=== PATIENT | female | born 1930 | race Caucasian/White ===

== ENCOUNTER 2017-08-25 11:54 | Inpatient (IN) | payer MEDICARE, OTHER ==
[~2017-08-25] VITALS: Ht 162.6 cm; Wt 43.1 kg
[~2017-08-25 11:54] MED LIST: ACETAMINOPHEN-1 EAC1 PO; ACETAMINOPHEN650 M5 PO; ACIDOPHILUS1 EAC3 PO; ACIDOPHILUS1 EACH PO; AMBEREN; AMLODIPINE BESY10 MG; AMLODIPINE BESY10 MG PO; AMPICILLIN PO; ANALGESIC325 MG PO; ANASPAZ0.125 MG SL; ANTACID650 MG PO; ASA5UEC; ASPIRIN EC325 M1 PO; ASPIRIN PO; ASPIRIN81 M2 PO; B12INJ; BENICAR; BENICAR HCT 401 EACH PO; BENICAR40 MG; BENICAR40 MG PO; BUDESONIDE EC3 MG PO; CALCIUM; CALCIUM 500 +1 EAC5 PO; CALCIUM 600 +1 EAC1; CENTRUM SILVER1 EAC4 PO; CEPHALEXIN 500500 M3 PO; CIPRO500 MG PO; CITRACAL + BON1 EACH; CITRACAL + D C1 EACH; CLORAZEPATE D3.75 M1; CLORAZEPATE D3.75 M1 PO; CLORAZEPATE D3.75 M2 PO; COLACE100 MG PO; CRANBERRY500 M1 PO; ENOXAPARIN40 MG/0.1 SUBQ; ENTOCORT EC3 MG; ENTOCORT EC3 MG PO; ENTOCORT PO; ESTRACE1 TUBE VAG; ESTRADIOL 1 MG T1 M1 TOP; FISH OIL 1,001000 M2 PO; FLAGYL500 MG PO; FOSAMAX 70 MG T70 M1; FOSAMAX 70 MG T70 M1 PO; FOSAMAX 70 MG T70 MG; HYDROCODONE-AP1 EAC6 PO; HYOMAX SL; HYOMAX-DT0.375 MG; IMODIUM A-D1 MG/5 ML; IMODIUM A-D1 MG/5 ML PO; K-DUR 20 MEQ T20 MEQ PO; KLOR-CON 1010 MEQ; LEVOTHROID 00.075 M1 PO; LEVOTHROID75 MCG; LEVOTHYROXINE0.05 MG PO; LEVOTHYROXINE50 MCG PO; LEVOTHYROXINE75 MCG PO; LEVSIN0.125 MG PO; LOMOTIL TABLET1 EACH; LOPERAMIDE 2 MG2 M1 PO; MACRODANTIN50 MG PO; MIRALAX255 GM; MIRAPEX; NASACORT10.8 ML NASAL; NEXIUM40 MG PO; NITROFURANTOIN50 M2 GT; NORCO 5-325 TA1 EACH PO; ONDANSETRON HCL4 M2 PO; OXYBUTYNIN 5 MG5 M1; OXYBUTYNIN 5 MG5 M1 PO; PHENERGAN 25 MG25 MG PO; POTASSIUM20 PO; QUESTRAN PACKET4 GM PO; RECLAST 55 MG/100 M; TIMOLOL; TIMOLOL MA0.25 %/5 M INTRAOCULR; TIMOPTIC2.5 M1 OP; TIROSINT75 MCG; TUMS PO; TYLENOL PM EX-1 EACH PO; VIOKASE 8 TABL468 MG PO; VITAMIN B COMP1 EACH PO; VITAMIN C120 GM; VITAMIN D2000 UNIT PO; VITAMIN D31000 UNI2; VITAMINC500 PO; VITCB500GO; ZOLOFT 50 MG TA50 M1; [UNRECOGNIZED DRUG - OTHER]
[2017-08-25 12:06] VITALS: BP 143/68
[2017-08-25 12:59] LABS: HEMATOCRIT 36.3 % (37.0-47.0); HEMOGLOBIN 12.1 gm/dL (12.0-15.0); MCH 29.4 pg (26.0-34.0); MCHC 33.3 g/dL (28.0-37.0); MCV 88.4 fL (80.0-100.0); NUCLEATED RBCS 0 /100WBC; PLATELET COUNT* 326 thou/uL (150-400); RBC 4.11 mil/uL (4.20-5.00); RDW-CV 13.8 % (10.5-14.5); WBC 10.2 thou/uL (4.0-11.0)
[2017-08-25 13:06] LABS: APTT 30.9 Seconds (25.0-31.3); PROTIME 9.5 Seconds (9.20-11.50)
[2017-08-25 13:15] LABS: ANION GAP 4 mmol/L (7-16); BUN 15 mg/dL (7-18); CHLORIDE 91 mmol/L (98-107); CO2 29 mmol/L (21-32); CREATININE 0.6 mg/dL (0.6-1.3); GLUCOSE 86 mg/dL (70-99); POTASSIUM 4.4 mmol/L (3.5-5.1); SODIUM 124 mmol/L (136-145)
[2017-08-25 13:22] LABS: ABSOLUTE LYMPHOCYTES 1.1 thou/uL (0.8-5.3); ABSOLUTE MONOCYTES 1.1 thou/uL (0.0-1.2); ANISOCYTOSIS 1+; PLATELET ESTIMATE ADEQUATE; POIKILOCYTOSIS 1+
[2017-08-25 13:26] LABS: ALBUMIN 3.4 g/dL (3.4-5.0); ALKALINE PHOSPHATASE 97 U/L (46-116); NT-PRO BRAIN NAT PEPTIDE 290 pg/mL (<300); SGOT 23 U/L (15-37); SGPT 21 U/L (30-65); TOTAL BILIRUBIN 0.4 mg/dL (<0.1-1.0); TOTAL PROTEIN 7.1 g/dL (6.4-8.2); TROPONIN-I LEVEL <0.06 ng/mL (<0.06)
[2017-08-25 13:42] LABS: URINE BILIRUBIN NEGATIVE (Negative); URINE BLOOD TRACE (Negative); URINE CLARITY CLEAR; URINE COLOR YELLOW; URINE GLUCOSE-RANDOM NEGATIVE (Negative); URINE KETONES NEGATIVE (Negative); URINE LEUKOCYTES-REFLEX 1+ (Negative); URINE NITRITE-REFLEX POSITIVE (Negative); URINE PROTEIN NEGATIVE (Negative); URINE UROBILINOGEN 0.2 E.U./dl (0.2-1.0)
[2017-08-25 13:50] LABS: SQUAMOUS 0-3 Few /LPF (0-3)
[2017-08-25 13:51] LABS: CASTS None Seen /LPF (None Seen); CRYSTALS None Seen /LPF (None Seen); URINE RBC 0-2 Rare /HPF (0-2)
[2017-08-25 15:27] VITALS: BP 159/60
[2017-08-25 16:00] VITALS: BP 152/62
--- NOTE | 2017-08-25 18:10 | NUR ---
ALERT AND ORIENTED X4. UP WITH ASSIST X1 WITH WALKER AND GAIT BELT. PAIN BEING MANAGED WITH PO PAIN MEDICATION. DENIES NAUSEA. IV IS PATENT AND INFUSING. VSS ON ROOM AIR. HOURLY ROUNDS HAVE BEEN MAINTAINED THROUGHOUT SHIFT. CALL LIGHT IS WITHIN REACH. NURSING WILL CONTINUE TO MONITOR.
--- NOTE | 2017-08-25 20:21 | EKG ---
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 CAN : 1930 Requested By: Jose Maria Romero Order Number: [id number] MD: Wale Morales Measurements Intervals [place] Rate: 77 P: 78 TN: 183 QRS: 18 QRSD: 82 T: 60 QT: 358 QTc: 406 Interpretive Statements Sinus rhythm Atrial premature complex Probable left atrial enlargement ST elevation suggests acute pericarditis Compared to ECG 02/18/2017 06:04:48 Atrial premature complex(es) now present ST (T wave) deviation now present T-wave abnormality no longer present Electronically Signed On 08-25-2017 20:21:25 HABILITATIVE INTERVENTIONIST by Wale Morales [email or web address] <ELECTRONICALLY SIGNED> By: Wale Morales MD, FACC 08/25/172020 1240 1240 Wale Morales MD, FACC /EPI
[2017-08-25 22:00] VITALS: BP 143/63
[2017-08-26 00:09] VITALS: BP 145/64
[2017-08-26 04:40] LABS: ABSOLUTE BASOPHILS 0.1 thou/uL (0.0-0.2); ABSOLUTE EOSINOPHILS 0.1 thou/uL (0.0-0.7); ABSOLUTE LYMPHOCYTES 1.1 thou/uL (0.8-5.3); ABSOLUTE MONOCYTES 0.9 thou/uL (0.0-1.2); ABSOLUTE NEUTROPHILS 6.3 thou/uL (1.6-8.1); BASOPHILS 0.8 %; EOSINOPHILS 1.4 %; HEMATOCRIT 34.5 % (37.0-47.0); HEMOGLOBIN 11.4 gm/dL (12.0-15.0); LYMPHOCYTES 12.6 %; MCH 29.4 pg (26.0-34.0); MCHC 33.1 g/dL (28.0-37.0); MCV 88.6 fL (80.0-100.0); MONOCYTES 10.3 %; MPV 6.1 fl. (7.2-11.1); NUCLEATED RBCS 0 /100WBC; PLATELET COUNT* 306 thou/uL (150-400); POLYS 74.9 %; RBC 3.89 mil/uL (4.20-5.00); RDW-CV 13.8 % (10.5-14.5); WBC 8.4 thou/uL (4.0-11.0)
[2017-08-26 05:19] LABS: CALCIUM 8.1 mg/dL (8.5-10.1); CREATININE 0.5 mg/dL (0.6-1.3); POTASSIUM 3.7 mmol/L (3.5-5.1)
[2017-08-26 08:00] VITALS: BP 118/64
--- NOTE | 2017-08-26 08:57 | NUR ---
ALERT AND ORIENTED. UP TO BEDSIDE COMMODE WITH 1 ASSIST. VOIDED IN BEDSIDE COMMODE 5 TIMES THROUGHOUT NIGHT. PATIENT STATED SHE DID NOT FEEL LIKE SHE NEEDED TO BE STRAIGHT CATH WHEN ASKED. PAIN MEDICATION GIVEN X1 FOR BACK PAIN AND HELPFUL. HAD STOOL FROM ILEOSTOMY. CALL LIGHT WITHIN REACH.
[2017-08-26] MEDS ORDERED: VITAMIN B-12500 MCG PO (09:19)
[2017-08-26] MEDS ORDERED: THERA TEARS15 ML OPHTHALMIC (09:20)
[2017-08-26 16:00] VITALS: BP 136/55
--- NOTE | 2017-08-26 17:44 | NUR ---
ALERT AND ORIENTED X4. UP WITH ASSIST OF 1 WITH WALKER AND GAIT BELT IN ROOM. IV IS PATENT AND SALINE LOCKED. MURILLO PLACE THIS EVENING DUE TO RETENTION. PAIN BEING MANAGED WITH PO PAIN MEDICATION. DENIES NAUSEA. VSS ON ROOM AIR. HOURLY ROUNDS HAVE BEEN MAINTAINED THROUGHOUT SHIFT. CALL LIGHT IS WITHIN REACH. NURSING WILL CONTINUE TO MONITOR.
[2017-08-26 20:12] VITALS: BP 148/64
[2017-08-27 04:00] VITALS: BP 164/65
[2017-08-27 04:27] LABS: HEMOGLOBIN 11.6 gm/dL (12.0-15.0); NUCLEATED RBCS 0 /100WBC; WBC 7.7 thou/uL (4.0-11.0)
[2017-08-27 04:29] LABS: ABSOLUTE BASOPHILS 0.1 thou/uL (0.0-0.2); ABSOLUTE EOSINOPHILS 0.2 thou/uL (0.0-0.7); ABSOLUTE LYMPHOCYTES 1.2 thou/uL (0.8-5.3); ABSOLUTE MONOCYTES 0.9 thou/uL (0.0-1.2); ABSOLUTE NEUTROPHILS 5.4 thou/uL (1.6-8.1); EOSINOPHILS 2.9 %; HEMATOCRIT 34.5 % (37.0-47.0); LYMPHOCYTES 14.9 %; MCH 29.6 pg (26.0-34.0); MCHC 33.6 g/dL (28.0-37.0); MCV 88.1 fL (80.0-100.0); MONOCYTES 11.2 %; PLATELET COUNT* 309 thou/uL (150-400); RBC 3.91 mil/uL (4.20-5.00); RDW-CV 13.8 % (10.5-14.5)
[2017-08-27 04:56] LABS: ALBUMIN 2.8 g/dL (3.4-5.0); CALCIUM 8.4 mg/dL (8.5-10.1); CREATININE 0.5 mg/dL (0.6-1.3); POTASSIUM 3.5 mmol/L (3.5-5.1); TOTAL BILIRUBIN 0.5 mg/dL (<0.1-1.0); TOTAL PROTEIN 6.4 g/dL (6.4-8.2)
--- NOTE | 2017-08-27 05:28 | NUR ---
PATIENT HAS REMAINED ALERT AND ORIENTED X 4 THROUGHOUT THE SHIFT AND RESTING AT HOURLY ROUNDS. MEDICATED FOR BACK PAIN AT SHIFT CHANGE TO GOOD EFFECT. MEDICATIONS PER ORDERS. VITAL SIGNS STABLE. CONTINUE TO MONITOR.
[2017-08-27 07:45] VITALS: BP 135/55
[2017-08-27 10:34] LABS: INFLUENZA A ANTIGEN None Detected (None Detect); INFLUENZA B ANTIGEN None Detected (None Detect)
[2017-08-27 16:00] VITALS: BP 128/64
--- NOTE | 2017-08-27 16:46 | NUR ---
PATIENT REMAINS ALERT AND ORIENTED. DENIES PAIN THIS AFTERNOON. UP TO CHAIR FOR A FEW HOURS. COCCYX RED, BLANCHABLE IN SOME AREAS. REPOSITIONED EVERY 2 HOURS. TOLERATING MEALS. IV SALINE LOCKED. ILEOSTOMY APPLIANCE CHANGED TODAY. LARGE AMOUNT OF STOOL. MURILLO IN PLACE WITH YELLOW URINE. BED/CHAIR ALARM IN USE. VSS. RA. DAUGHTER AT BEDSIDE. WILL CONTINUE TO MONITOR.
[2017-08-27 21:15] VITALS: BP 149/68
[2017-08-28 01:20] VITALS: BP 130/49
--- NOTE | 2017-08-28 06:29 | NUR ---
ALERT AND ORIENTED. UP WITH 1 ASSIST, GAIT BELT AND WALKER TO BATHROOM. TURNED EVERY 2 HOURS WHILE IN BED. PAIN MEDICATION GIVEN X1 FOR BACK PAIN. BED ALARM ON WHILE IN BED. NO C/O N/V. MURILLO CATH PATENT WITH CLEAR YELLOW URINE. CALL LIGHT WITHIN REACH.
[2017-08-28 08:15] VITALS: BP 128/62
[2017-08-28 09:42] VITALS: BP 128/62
[2017-08-28] MEDS ORDERED: CIPRO500 MG PO (09:44)
--- NOTE | 2017-08-28 10:38 | NUR ---
Pt was seen d/t low BMI of 16.3. Pt was admitted d/t weakness and UTI. Note pt hx ileostomy and celiac. Pt denies recent wt loss. Pt reports good appetite and no issues with gluten free diet while in hospital. Chart Reviewed. Low nutrition risk.
--- NOTE | 2017-08-28 13:18 | NUR ---
SPOKE WITH DAUGHTER,NANCY AND PT. AT THIS TIME PT.LIVES ALONE BUT KNOWS SHE IS GOING TO HAVE TO MAKE OTHER ARRANGEMENTS. WOULD LIKE TO GO TO [facility] FOR SNF. THEY THEN MAY LOOK INTO THE [facility]. PT.USES A WALKER TO AMBULATE. MADE REFERRAL TO [facility] FOR [facility] BED. TOLD HER PT.READY FOR DISCHARGE TODAY. [facility] CALLED BACK AT THIS TIME AND SAID THEY COULD ACCEPT PT.TODAY. [facility] CAN PICK HER UP AT 1430. PT.AND DAUGHTER INFORMED. FAXED ORDERS TO [facility]. CHART COPIED TO GO [facility] PT. NGOC DOMINGUEZ WILL CALL REPORT.
--- NOTE | 2017-08-28 14:01 | NUR ---
MURILLO REMOVED. PATIENT STRAIGHT CATHS TID AT HOME. ORDER SENT TO ASSISTED.
--- NOTE | 2017-08-28 14:32 | NUR ---
PATIENT DISCHARGED TO [facility] AT THIS TIME VIA WHEELCHAIR VAN. DAUGHTER MARYELLEN WITH PATIENT. IV REMOVED EARLIER IN SHIFT. CHIDI CROFT'D PRIOR TO DC. INFORMED FACILITY PATIENT STRAIGHT CATHS TID AT HOME. COPY OF CHART SENT. REPORT CALLED TO [facility].
== END 2017-08-28 14:30 | DRG 644 ==
LOC: M.ERS 11:54 → M.ORTHSURG 13:56 → M.TBA-ER 13:56 → M.ORTHSURG 15:32
PROVIDERS: Family Medicine; ADMIT Internal Medicine
DX: E22.2 Syndrome of inappropriate secretion of antidiuretic hormone (principal); M48.54XA Collapsed vertebra, not elsewhere classified, thoracic region, initial encounter for fracture; N39.0 Urinary tract infection, site not specified; R65.10 Systemic inflammatory response syndrome (SIRS) of non-infectious origin without acute organ dysfunction; E44.1 Mild protein-calorie malnutrition; Z68.1 Body mass index [BMI] 19.9 or less, adult; I10 Essential (primary) hypertension; M81.0 Age-related osteoporosis without current pathological fracture; W18.39XA Other fall on same level, initial encounter; E86.0 Dehydration; B96.89 Other specified bacterial agents as the cause of diseases classified elsewhere; Z90.49 Acquired absence of other specified parts of digestive tract; Z98.42 Cataract extraction status, left eye; Z98.41 Cataract extraction status, right eye; Z85.828 Personal history of other malignant neoplasm of skin; Z93.2 Ileostomy status; Z79.82 Long term (current) use of aspirin; Z79.899 Other long term (current) drug therapy; Z88.2 Allergy status to sulfonamides; Z88.8 Allergy status to other drugs, medicaments and biological substances; Y93.89 Activity, other specified; Y92.89 Other specified places as the place of occurrence of the external cause; Y99.8 Other external cause status

== ENCOUNTER 2017-11-10 14:06 | Emergency (ER) | payer MEDICARE, OTHER ==
[~2017-11-10] VITALS: Ht 162.6 cm; Wt 43.5 kg
[~2017-11-10 14:06] MED LIST changes: +THERA TEARS15 ML OPHTHALMIC; +VITAMIN B-12500 MCG PO
[2017-11-10] MEDS ORDERED: FISH OIL 1,001000 M2 PO (14:22)
[2017-11-10] MEDS ORDERED: KLOR-CON 1010 MEQ PO (14:23)
[2017-11-10] MEDS ORDERED: SYNTHROID75 MCG (14:24)
[2017-11-10] MEDS ORDERED: CALCIUM 600 +1 EAC1 PO (14:25)
[2017-11-10] MEDS ORDERED: IRON325 PO (14:26)
[2017-11-10 15:11] LABS: ABSOLUTE BASOPHILS 0.1 thou/uL (0.0-0.2); ABSOLUTE EOSINOPHILS 0.2 thou/uL (0.0-0.7); ABSOLUTE LYMPHOCYTES 0.9 thou/uL (0.8-5.3); ABSOLUTE MONOCYTES 0.8 thou/uL (0.0-1.2); BASOPHILS 0.7 %; EOSINOPHILS 2.1 %; HEMATOCRIT 34.3 % (37.0-47.0); HEMOGLOBIN 11.5 gm/dL (12.0-15.0); LYMPHOCYTES 11.5 %; MCH 30.4 pg (26.0-34.0); MCHC 33.6 g/dL (28.0-37.0); MCV 90.6 fL (80.0-100.0); MONOCYTES 9.7 %; MPV 5.9 fl. (7.2-11.1); NUCLEATED RBCS 0 /100WBC; PLATELET COUNT* 301 thou/uL (150-400); RBC 3.78 mil/uL (4.20-5.00); RDW-CV 15.1 % (10.5-14.5); WBC 7.9 thou/uL (4.0-11.0)
[2017-11-10 15:15] LABS: ANION GAP 9 mmol/L (7-16); BUN 19 mg/dL (7-18); CALCIUM 8.3 mg/dL (8.5-10.1); CHLORIDE 93 mmol/L (98-107); CO2 26 mmol/L (21-32); CREATININE 0.7 mg/dL (0.6-1.3); GLUCOSE 110 mg/dL (70-99); POTASSIUM 4.4 mmol/L (3.5-5.1); SODIUM 128 mmol/L (136-145)
[2017-11-10 15:16] LABS: APTT 26.9 Seconds (25.0-31.3); PROTIME 9.7 Seconds (9.20-11.50)
[2017-11-10 15:26] LABS: ALBUMIN 3.4 g/dL (3.4-5.0); ALKALINE PHOSPHATASE 123 U/L (46-116); NT-PRO BRAIN NAT PEPTIDE 190 pg/mL (<300); SGOT 20 U/L (15-37); SGPT 23 U/L (30-65); TOTAL BILIRUBIN 0.3 mg/dL (<0.1-1.0); TOTAL PROTEIN 6.6 g/dL (6.4-8.2); TROPONIN-I LEVEL <0.06 ng/mL (<0.06)
[2017-11-10 16:14] LABS: URINE BILIRUBIN NEGATIVE (Negative); URINE BLOOD NEGATIVE (Negative); URINE CLARITY CLEAR; URINE COLOR YELLOW; URINE GLUCOSE-RANDOM NEGATIVE (Negative); URINE KETONES NEGATIVE (Negative); URINE LEUKOCYTES-REFLEX NEGATIVE (Negative); URINE NITRITE-REFLEX NEGATIVE (Negative); URINE PROTEIN NEGATIVE (Negative); URINE SPECIFIC GRAVITY <= 1.005 (1.005-1.030); URINE UROBILINOGEN 0.2 E.U./dl (0.2-1.0)
[2017-11-10 18:11] VITALS: BP 144/56
--- NOTE | 2017-11-11 10:11 | EKG ---
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 CAN : 1930 Requested By: Viktor Deshpande Order Number: [id number] MD: Albert Douglas Measurements Intervals [place] Rate: 68 P: 58 AR: 213 QRS: 11 QRSD: 79 T: 61 QT: 385 QTc: 410 Interpretive Statements Sinus rhythm Borderline prolonged AR interval Minimal ST elevation, inferior leads Compared to ECG 08/25/2017 12:40:52 Atrial premature complex(es) no longer present ST (T wave) deviation still present Electronically Signed On 11-11-2017 10:11:30 CDT by Albert Douglas [email or web address] <ELECTRONICALLY SIGNED> By: Perlita Douglas MD, [facility] 11/11/17 1011 1506 1506 Perlita Douglas MD, [facility] /EPI
== END 2017-11-10 18:12 | disposition home or self-care (01) ==
LOC: M.ERS 14:06
PROVIDERS: Emergency Medicine
DX: K94.19 Other complications of enterostomy (principal); E87.1 Hypo-osmolality and hyponatremia; I10 Essential (primary) hypertension; M81.0 Age-related osteoporosis without current pathological fracture; Z88.1 Allergy status to other antibiotic agents; Z88.8 Allergy status to other drugs, medicaments and biological substances

== ENCOUNTER 2018-08-05 22:11 | Inpatient (IN) | payer MEDICARE, OTHER ==
[~2018-08-05] VITALS: Ht 165.1 cm; Wt 41.3 kg
[~2018-08-05 22:11] MED LIST changes: +CALCIUM 600 +1 EAC1 PO; +IRON325 PO; +KLOR-CON 1010 MEQ PO; +SYNTHROID75 MCG PO
[2018-08-05 22:12] VITALS: BP 133/67
[2018-08-05 22:36] LABS: HEMATOCRIT 32.9 % (37.0-47.0); HEMOGLOBIN 11.4 gm/dL (12.0-15.0); MCH 32.6 pg (26.0-34.0); MCHC 34.6 g/dL (28.0-37.0); MCV 94.1 fL (80.0-100.0); MPV 6.2 fl. (7.2-11.1); NUCLEATED RBCS 0 /100WBC; PLATELET COUNT* 256 thou/uL (150-400); RBC 3.49 mil/uL (4.20-5.00); RDW-CV 13.2 % (10.5-14.5); WBC 7.3 thou/uL (4.0-11.0)
[2018-08-05 22:48] LABS: ANION GAP 6 mmol/L (7-16); BUN 16 mg/dL (7-18); CALCIUM 8.6 mg/dL (8.5-10.1); CHLORIDE 93 mmol/L (98-107); CO2 27 mmol/L (21-32); CREATININE 0.6 mg/dL (0.6-1.3); GLUCOSE 118 mg/dL (70-99); POTASSIUM 4.2 mmol/L (3.5-5.1); SODIUM 126 mmol/L (136-145)
[2018-08-05 23:02] LABS: ALBUMIN 3.2 g/dL (3.4-5.0); ALKALINE PHOSPHATASE 74 U/L (46-116); LIPASE 494 U/L (73-393); NT-PRO BRAIN NAT PEPTIDE 298 pg/mL (<300); SGOT 22 U/L (15-37); SGPT 22 U/L (30-65); TOTAL BILIRUBIN 0.3 mg/dL (<0.1-1.0); TOTAL PROTEIN 6.4 g/dL (6.4-8.2); TROPONIN-I LEVEL <0.06 ng/mL (<0.06)
[2018-08-05 23:41] LABS: URINE BILIRUBIN NEGATIVE (Negative); URINE BLOOD NEGATIVE (Negative); URINE CLARITY CLEAR; URINE COLOR YELLOW; URINE GLUCOSE-RANDOM NEGATIVE (Negative); URINE KETONES NEGATIVE (Negative); URINE LEUKOCYTES-REFLEX NEGATIVE (Negative); URINE NITRITE-REFLEX NEGATIVE (Negative); URINE PROTEIN TRACE (Negative); URINE SPECIFIC GRAVITY <= 1.005 (1.005-1.030); URINE UROBILINOGEN 0.2 E.U./dl (0.2-1.0)
[2018-08-05 23:48] LABS: ABSOLUTE EOSINOPHILS 0.1 thou/uL (0.0-0.7); ABSOLUTE LYMPHOCYTES 0.8 thou/uL (0.8-5.3); ABSOLUTE MONOCYTES 0.6 thou/uL (0.0-1.2); ABSOLUTE NEUTROPHILS 5.8 thou/uL (1.6-8.1)
[2018-08-05 23:49] LABS: CLUMPED PLTS OCCASIONAL; PLATELET ESTIMATE ADEQUATE; TOXIC GRANULATION 1+
[2018-08-06] MEDS ORDERED: TYLENOL EXTRA500 MG PO (00:11)
[2018-08-06] MEDS ORDERED: ASPIRIN325 PO (00:12)
[2018-08-06] MEDS ORDERED: TIMOLOL GL0.5 %/5 M1 OPHTHALMIC (00:13)
[2018-08-06] MEDS ORDERED: LEVOTHYROXINE50 MCG PO (00:14)
[2018-08-06] MEDS ORDERED: KLOR-CON 1010 MEQ PO (00:15)
[2018-08-06] MEDS ORDERED: BENICAR20 MG PO (00:16)
[2018-08-06] MEDS ORDERED: NITROFURANTOIN50 M2 PO (00:17)
[2018-08-06 00:41] VITALS: BP 153/71
[2018-08-06 01:15] VITALS: BP 150/62
--- NOTE | 2018-08-06 02:41 | NUR ---
PT RECIEVED FROM ED. SAT MAINTAINED IN RA. ALERT AND ORIENTED X4. CALL LIGHT WITHIN REACH AND BED IN LOW POSITION. ILEOSTOMY BAG PRESENT. DENIES SOB AND PAIN.
[2018-08-06 04:00] VITALS: BP 156/55
[2018-08-06 08:30] VITALS: BP 165/58
[2018-08-06 10:08] LABS: ALBUMIN 2.9 g/dL (3.4-5.0); CALCIUM 8.2 mg/dL (8.5-10.1); CREATININE 0.7 mg/dL (0.6-1.3); POTASSIUM 3.5 mmol/L (3.5-5.1); TOTAL BILIRUBIN 0.3 mg/dL (<0.1-1.0)
--- NOTE | 2018-08-06 10:19 | EKG ---
[place] [address] ELECTROCARDIOGRAM REPORT Name: KYLERACHEL M Room: [address] ADM IN M.R.#: [id number] Admission: 08/06/18 Attend Phys: Ascencion Bran MD Discharge: Date of : 30 Report #: [id number] THIS REPORT FOR: //name// [facility] ED Test Date: 2018-08-05 Test Time: 22:38:05 Pat Name: RACHEL WRIGHT Department: Room: [facility] Gender: F Garnett Fixer: DANA : 1930 Requested By: Brandi Almaraz Order Number: [id number] MD: El Carey Measurements Intervals [place] Rate: 99 P: 63 NC: 191 QRS: -26 QRSD: 82 T: 43 QT: 324 QTc: 416 Interpretive Statements Sinus tachycardia Atrial premature complex Probable left atrial enlargement Borderline left axis deviation Abnormal inferior Q waves Compared to ECG 11/10/2017 15:06:55 Atrial premature complex(es) now present ST (T wave) deviation still present Electronically Signed On 08-06-2018 10:19:30 PHARMACIST CRITICAL CARE by El Carey [email or web address] <ELECTRONICALLY SIGNED> By: El Carey MD, FAC 08/06/18 1019 37 37 El Carey MD, [facility] /EPI
[2018-08-06 12:33] VITALS: BP 131/71
--- NOTE | 2018-08-06 14:03 | NUR ---
ATTEMPTED TO MEET WITH PT THIS AM, PT WAS BUSY WITH DR AND THEN NURSE. ON 3RD ATTEMPT, DTR JARROD CAMERON STATED SHE WANTED ME TO COME BACK TOMORROW.
--- NOTE | 2018-08-06 15:20 | NUR ---
WOUND CARE NOTE: CONSULT RECEIVED FOR PRESSURE WOUND. PATIENT ADMITS TO LOWERING HERSELF DOWN TO THE FLOOR WHEN SHE WAS HOME, ALSO STATES SHE HIT THE WALL WHEN GOING DOWN. STATES SHE SAT ON THE FLOOR FOR AWHILE THEN SCOOTED HERSELF ACROSS THE FLOOR. BELIEVE PATIENT HAS ECCHYMOSIS TO THE SACROCOCCYGEAL REGION. DO NOT BELIEVE THIS IS A PRESSURE ULCER. PATIENT ALSO HAS FRICTION INJURIES TO BILATERAL SIDES OF SACRUM, BELIEVE FROM WEARING BRIEF. PATIENT DOES HAVE A STACK OF BRIEFS IN HER ROOM. APPLIED BARRIER OINTMENT TO THE AREA. DO NOT BELIEVE SHE HAS PRESSURE ULCERS. RECOMMEND TURN Q2 HOURS THIN LAYER OF BARRIER OINTMENT BID AND PRN NO BRIEFS IN BED WILL SIGN OFF AT THIS TIME, PLEASE RECONSULT IF NEEDED.
--- NOTE | 2018-08-06 15:24 | 2DMMODE ---
[place] [address] 2 D/M-MODE ECHOCARDIOGRAM Name: JORDYN WRIGHTLICHA Lake Room: [address] [facility]#: [id number] Admission: 08/06/18 Attend Phys: Ascencion Bran, Discharge: Date of : 30 Date of Service: 08/06/18 1524 Report #: [id number] THIS REPORT FOR: //name// APPROVED REPORT Study performed: 08/06/2018 13:35:28 EXAM: Comprehensive 2D, Doppler, and color-flow Echocardiogram Patient Location: In-Patient Room #: [facility] Status: routine BSA: 1.45 HR: 82 bpm BP: 165/58 mmHg Rhythm: NSR Other Information Study Quality: Good Indications CVA/TIA Echo Enhancing Agent Indication: Rule out Shunt Agent(s) / Amount(s) Used: Agitated Saline 10 cc 2D Dimensions IVSd: 9.33 (7-11mm) LVOT Diam: 20.12 (18-24mm) LVDd: 44.72 mm PWd: 9.25 (7-11mm) Ascending Ao: 33.23 (22-36mm) LVDs: 31.55 (25-40mm) Aortic Root: 32.37 mm Volumes Left Atrial Volume (Systole) LA ESV Index: 19.30 mL/m2 Aortic Valve AoV Peak Constantino.: 2.63 m/s AO Peak Gr.: 27.75 mmHg LVOT Max P.17 mmHg AO Mean Gr.: 15.70 mmHg LVOT Mean P.85 mmHg LVOT Max V: 1.14 m/s AO V2 VTI: 54.74 cm LVOT Mean V: 0.79 m/s FELIX (VTI): 1.54 cm2 LVOT V1 VTI: 26.45 cm AI Preston: 4.34 m/s2 AI PHT: 316.73 [place] [address] 2 D/M-MODE ECHOCARDIOGRAM Name: JORDYN WRIGHTLICHA Lake Room: [address] IN .R.#: [id number] Admission: 08/06/18 Attend Phys: Ascencion Bran, Discharge: Date of : 30 Date of Service: 08/06/18 1524 Report #: [id number] Mitral Valve E/A Ratio: 0.80 MV Decel. Time: 211.34 ms MV E Max Constantino.: 0.64 m/s MV PHT: 61.29 ms MVA (PHT): 3.59 cm2 TDI E/Lateral E': 7.11 E/Medial E': 7.11 Medial E' Constantino.: 0.09 m/s Lateral E' Constantino.: 0.09 m/s Pulmonary Valve PV Peak Constantino.: 0.84 m/s PV Peak Gr.: 2.84 mmHg Tricuspid Valve RAP Estimate: 5.00 mmHg TR Peak Gr.: 28.22 mmHg RVSP: 33.00 mmHg PA Pressure: 33.00 mmHg Left Ventricle The left ventricle is normal size. There is normal LV segmental wall motion. There is normal left ventricular wall thickness. Left ventricular systolic function is normal. The left ventricular ejection fraction is within the normal range. LVEF is 60-65%. Grade I - abnormal relaxation pattern. Right Ventricle The right ventricle is normal size. The right ventricular systolic function is normal. Atria The left atrium size is normal. The right atrium size is normal. Aortic Valve Moderate aortic valve sclerosis. Moderate aortic regurgitation. Mild to moderate aortic stenosis. Mitral Valve The mitral valve is normal in structure. Mild mitral regurgitation. No evidence of mitral [place] [address] 2 D/M-MODE ECHOCARDIOGRAM Name: RACHEL WRIGHT Room: [address] [place] [facility]#: [id number] Admission: 08/06/18 Attend Phys: Ascencion Bran, Discharge: Date of : 30 Date of Service: 08/06/18 1524 Report #: [id number] Tricuspid Valve The tricuspid valve is normal in structure. Mild tricuspid regurgitation. estimate pa pressure 40 mm Hg Pulmonic Valve Pulmonic valve is not well visualized. There is no pulmonic valvular regurgitation. Great Vessels The aortic root is normal in size. IVC is normal in size and collapses >50% with inspiration. Pericardium There is no pericardial effusion. <Conclusion> LVEF is 60-65%. Mild to moderate aortic stenosis. Moderate aortic regurgitation. Mild mitral regurgitation. Mild tricuspid regurgitation. estimate pa pressure 40 mm Hg <ELECTRONICALLY SIGNED> By: El Carey MD, [facility] 08/06/18 1524 1524 1524 El Carey MD, FACC /INF
[2018-08-06 20:00] VITALS: BP 155/62
--- NOTE | 2018-08-06 20:08 | NUR ---
ASSUMED PT CARE AT 0730, FULL ASSESMENT DONE CHARTED. PT A/O X4, SLIGHTLY [place], VSS, SR ON THE MONITOR, PT DENIES PAIN. EDUCATED ON USING CALL LIGHT WHEN NEEDING ASSISTANCE TO GET UP. PT VERBALIZED UNDERSTANDING. SHE DID MULTIPLE TIMES THIS SHIFT, CALL AND GET OUT OF BED WITH OUT WAITING FOR STAFF TO HELP HER. BED ALARM ON. PT UP WITH 1 ASSIST TO BSC, HAS BEEN INCONTINANAT OF URINE SEVERAL TIMES TODAY. PT AND DAUGHTERS UPDATED ON PLAN OF CARE. REPORT GIVEN TO ANTONY GROSSMAN
[2018-08-07] VITALS: BP 147/64
[2018-08-07 03:15] VITALS: BP 111/58; BP 123/72
--- NOTE | 2018-08-07 05:12 | NUR ---
PT CARE ASSUMED AT 1930. SAT MAINTAINED IN RA. ALERT AND ORIENTED X4. CALL LIGHT WITHIN REACH AND BED IN LOW POSITION. PT HAS URGENCY OF URINE. DENIES SOB. C/O PAIN, MEDICATION GIVEN PER EMAR. HOURLY ROUNDING DONE FOR PT SAFTEY. ILEOSTOMY BAG PRESENT.
[2018-08-07 06:00] LABS: ABSOLUTE EOSINOPHILS 0.2 thou/uL (0.0-0.7); ABSOLUTE LYMPHOCYTES 1.1 thou/uL (0.8-5.3); ABSOLUTE MONOCYTES 0.7 thou/uL (0.0-1.2); ABSOLUTE NEUTROPHILS 3.9 thou/uL (1.6-8.1); BASOPHILS 0.7 %; EOSINOPHILS 3.5 %; HEMATOCRIT 31.1 % (37.0-47.0); HEMOGLOBIN 10.9 gm/dL (12.0-15.0); LYMPHOCYTES 18.7 %; MCV 94.4 fL (80.0-100.0); MONOCYTES 11.5 %; MPV 6.5 fl. (7.2-11.1); NUCLEATED RBCS 0 /100WBC; PLATELET COUNT* 254 thou/uL (150-400); POLYS 65.6 %; RDW-CV 13.1 % (10.5-14.5)
[2018-08-07 06:15] LABS: ANION GAP 7 mmol/L (7-16); BUN 11 mg/dL (7-18); CALCIUM 8.5 mg/dL (8.5-10.1); CHLORIDE 99 mmol/L (98-107); CHOLESTEROL 148 mg/dL (<200); CO2 27 mmol/L (21-32); CREATININE 0.6 mg/dL (0.6-1.3); GLUCOSE 80 mg/dL (70-99); HDL CHOLESTEROL 53 mg/dL (>40); LDL CHOLESTEROL 78 mg/dL (<100); POTASSIUM 3.7 mmol/L (3.5-5.1); SODIUM 133 mmol/L (136-145); TC:HDL 2.8 Ratio (Not establshd); TRIGLYCERIDE 88 mg/dL (<150); VLDL 18 mg/dL (<40)
[2018-08-07 06:16] LABS: SERUM ASSESSMENT Clear
[2018-08-07 08:00] VITALS: BP 181/73
[2018-08-07 12:00] VITALS: BP 120/55
--- NOTE | 2018-08-07 13:16 | NUR ---
MET WITH PT AND SPOKE WITH DTR/JARROD OVER THE PHONE. PT LIVES ALONE, SHE HAS [facility] 7DAYS/WEEK FROM 9A/12P, AND 3-6PM. THEY ASSIST WITH PERSONAL CARE, PREPARE MEALS AND DO HOUSEWORK. PT HAS HAD HH IN PAST, PER DTR, [facility] RETUR[facility] HOME. PT HAS W/C, WALKER, SHOWER BENCH AND 'NEW STEP'. PT STATES HER CG IS VERY HELPFUL AND KNOWS WHAT 'EXERCISE' SHE NEEDS TO DO. SPOKE WITH DTR/JARROD, SHE ASKED ABOUT POSSIBLE REHAB AND WANTED TO KNOW WHAT DR RECOMMENDED, WANTS TO TALK WTIH DR. DISCUSSED WITH DR BULLARD, HE ASKED THAT DC BE HELD TODAY, PT MADE M/S STATUS. DTRS PLAN TO DISCUSS DC PLAN FURTHER WITH PT HOME WITH HH VS SNF. CM TO FOLLOW
[2018-08-07 16:04] VITALS: BP 148/57
--- NOTE | 2018-08-07 18:56 | NUR ---
PT ASSESSMENT CHARTED. VSS THROUGHOUT SHIFT. PT IS M/S STATUS. DISCHARGE TOMORROW. PT'S DAUGHTER CAME OUT AND STATED THAT PT IS OKAY WITH GOING TO [facility] TOMORROW. DISCHARGE PENDING FOR TOMORROW. CASE MANAGEMENT NOTIFIED REGARDING PATIENT WISHES.
[2018-08-07 19:50] VITALS: BP 168/71
--- NOTE | 2018-08-08 02:34 | NUR ---
RECIEVED REPORT AND ASSUMED CARE AT 1900. PT IS MED SURG SO NO MONITOR. VITAL SIGNS WERE STABLE. PT IS UP WITH STAND BY ASSIST X 1. PT DENIES ANY PAIN AT THIS TIME. ASSESSMENT COMPLETED, DISCUSSED PLAN OF CARE, PT UNDERSTANDS. BED LOCKED AND CALL LIGHT WITHIN REACH. FALL PRECAUTIONS IN PLACE. HOURLY ROUNDING DONE AND ALL NEEDS MET. NURSING WILL CONTINUE TO MONITOR.
[2018-08-08 08:00] VITALS: BP 166/74
--- NOTE | 2018-08-08 08:56 | NUR ---
RECEIVED CALL FROM NURSE STATING PT'S DTR AND PT NOW AGREEABLE TO SNF, WOULD LIKE TO GO TO [facility]. CALLED AND FAXED REFERRAL TO [facility]
--- NOTE | 2018-08-08 18:39 | NUR ---
RECEIVED REPORT FROM [facility] NURSE CHICAS. ASSUMED CARE OF PT AROUND 07. PT A&O X4 BUT FORGETFUL. VSS. O2 SAT 96% ON RA. PT M/S STATUS. AM ASSESSMENT AND VITALS COMPLETED CHARTED. PT TOLERATING DIET - PT SEEN BY ST THIS SHIFT, DIET CHANGED TO MECHANICAL ALTERED CHOPPED. FAMILY IN AND OUT DURING SHIFT. PT SEEN BY OT - AMBULATED DOWN THE HALLWAY WITHOUT ISSUE WITH WALKER. PT REFUSING SOME TURNS THIS SHIFT. PT EDUCATED ON IMPORTANCE OF TURNING TO PRESERVE SKIN INTEGRITY. PT ASSISTED TO BEDSIDE COMMODE SEVERAL TIMES TO VOID, NO ISSUES. ILLEOSTOMY BAG CHANGED THIS AFTERNOON. BM NOTED. NIH 2 FOR MILD APHASIA. PT TO LEAVE TO [facility] TOMORROW. PT CURRENTLY WATCHING TV IN BED. CALL LIGHT IS WITHIN REACH. FALL PRECAUTIONS ARE IN PLACE. WILL CONTINUE TO MONITOR UNTIL DURATION OF SHIFT.
[2018-08-08 19:50] VITALS: BP 172/75
[2018-08-09] VITALS: BP 151/74
--- NOTE | 2018-08-09 07:05 | NUR ---
VITALS WNL. SEE MAR. SEE CHARTING. FALL PRECAUTIONS IN PLACE. HOURLY ROUNDING FOR SAFETY.
[2018-08-09 08:00] VITALS: BP 138/65
--- NOTE | 2018-08-09 11:36 | NUR ---
HOSPITALITY DIRECTOR SPOKE TO THE PATIENT AND HER DTR ROSALINDA TO DISCUSS THE PATIENT'S D/C TODAY TO [facility] AT 1400. PATIENT AND DTR IN AGREEMENT. D/C FACTORY LAY OUT ENGINEER SPOKE TO KENIA WITH [facility] TO INFORM OF THE PATIENT'S D/C AND FAXED THE PATIENT'S D/C ORDERS. [facility] ARRANGED TRANSPORT FOR 1400. D/C FACTORY LAY OUT ENGINEER INFORMED THE RN IN-CHARGE OF THE PATIENT OF THE PATIENT'S TIME OF TRANSPORT AND WHERE TO CALL REPORT. RN IN AGREEMENT. CM WILL REMAIN AVAILABLE TO ASSIST AND FOLLOW NEEDED.
[2018-08-09 13:51] VITALS: BP 138/65
--- NOTE | 2018-08-09 14:09 | EEG ---
[address] [address] EEG STUDY REPORT Name: RACHEL WRIGHT Room: [address] IN M.R.#: [id number] Admission: 08/06/18 Attend Phys: Ascencion Bran MD Discharge: Date of : 30 Report #: [id number] THIS REPORT FOR: //name// CC: El Bran DATE OF SERVICE: 08/07/2018 This patient is having unexplained episode where she loses strength and falls down. EEG is being done to evaluate the possibility of seizure. EEG was done by placing the electrode by standard 10-20 system of electrode placement. Both referential and sequential montages were used for recording. Background activity in this patient's EEG is about 9 Hz and 30 microvolts. The patient went to sleep that is associated with bilateral slowing and vertex sharp waves. Photic stimulation is unremarkable. Throughout the record, no active epileptiform activity was noticed. IMPRESSION: This electroencephalogram is intermixed with some theta range slowing on both sides. That is a nonspecific abnormality, which can occur with dementia, encephalopathy, effect of psychotropic medication. No active epileptiform activity was noticed. Thank you very much for this referral. <ELECTRONICALLY SIGNED> By: Jatinder Galeas MD 08/09/18 1409 1335 1342Pphi Galeas MD /nt
--- NOTE | 2018-08-09 14:09 | CON ---
[address] [address] CONSULTATION Name: RACHEL WRIGHT Room: [address] IN M.R.#: [id number] Admission: 08/06/18 Attend Phys: Ascencion Bran MD Discharge: Date of : 30 Report #: [id number] THIS REPORT FOR: //name// CC: El Bran DATE OF SERVICE: 08/06/2018 HISTORY OF PRESENT ILLNESS: This is an 88-year-old female patient who wants to go home. She does not want much testing to be done. She tries to underplay her symptoms. It looks like she felt weak in her legs, then probably the whole body and then she sat down. It looks like she was conscious throughout this episode. Her sodium was found to be low, and her blood pressure was elevated. Her speech is slurred. Daughter thinks it is new, the patient thinks it is her baseline. Initially, I talked to the patient, and the patient refused any further workup. Then, I talked to the patient's daughter, and she wanted to perform further workup. REVIEW OF SYSTEMS: Indicates that she does have hyponatremia. She was here in 2017, and I reviewed those records, and it looks like that time, she had similar symptoms, daughter think it is an annual event. She thinks she is pretty strong and in fact she wants to go home. Daughter thinks these things have happened more than once. Even in the last few days, it has happened more than once. The patient lives by herself. She does get home health. She thinks her memory is reasonable. REVIEW OF SYSTEMS: Positive for osteoporosis, UTI, skin cancer removed, bilateral cataract, celiac disease, hypertension, gallbladder removed. This was her relevant 14-point review of system. PAST MEDICAL HISTORY: Positive for similar spell. FAMILY HISTORY: Negative for any early age stroke. SOCIAL HISTORY: She denies the use of alcohol or tobacco. PHYSICAL EXAMINATION: Indicates she is alert. She is responsive. She can follow simple command. She is oriented. She knows what month it is, and she is competent to make a decision. Cranial nerve examination 2-12 looks unremarkable. She has reasonable strength, sensation, reflexes and tone in all 4 extremities. There is no carotid bruit in this patient. There is no meningeal sign. There is no thyroid mass. She is moderately built individual who does not have any dysmorphic features of eyes, ears and face. Her pulses are somewhat difficult to feel, but she has no edema, cyanosis or jaundice. Cardiac examination is unremarkable. No respiratory difficulty or rhonchi was noticed. Blood pressure is 165/58, pulse is 82 and temperature is 98.2. [place] [address] CONSULTATION Name: RACHEL WRIGHT Room: [address] IN .R.#: [id number] Admission: 08/06/18 Attend Phys: Ascencion Bran MD Discharge: Date of : 30 Report #: [id number] LABORATORY DATA: White count is 7.3. Sodium was 126, but is 132 now. She did have a CT scan of the head, which does not appear to be showing any acute abnormality. IMPRESSION: Difficult to tell what this spell is from, but it is desirable to do the work up for transient ischemic attack and nonconvulsive seizure. She does have hyponatremia and hypertension and that need to be controlled. RECOMMENDATION: I initially talked to the patient and the patient declined any further testing. Subsequently, I talked to the patient's daughter, she wanted us to do the work up. She is going to talk to the patient. If the patient allows, then I think an MRI and MRA can be repeated and an EEG can be done, but if that is unremarkable, the emphasis should be to treat her sodium as well as hypertension. MRI is desirable, especially daughter thinks his speech is worse. I did discuss with them all of it may be related to hypertension and hyponatremia and that is the most likely cause, but it will be desirable to exclude any pathology in the brain, but we should do that only if the patient is agreeable with that. More than 50 minutes of time was spent taking care of this patient today and majority of that time was spent counseling the patient and subsequently the patient's daughter and coordinating her care. <ELECTRONICALLY SIGNED> By: Jatinder Galeas MD 08/09/18 1409 1227 [id number] Galeas MD /nt
--- NOTE | 2018-08-09 15:29 | NUR ---
order received to dicharge ol[facility] to [facility] fo rfurther care. med rec, and medication edcaution completd. report called to facility and gruponet assisted in preparation for discharge. iv removed. hourly rouding completed for patinet safety. transportatio arrived an assisted patient to transport wheelchair van by wheelchair. discharge time of 14:20.
== END 2018-08-09 14:25 | DRG 641 ==
LOC: M.ERS 22:11 → M.TBA-ER 08-06 00:07 → M.2W 08-06 00:07
PROVIDERS: Internal Medicine; Physician Assistant; ADMIT Internal Medicine
DX: E87.1 Hypo-osmolality and hyponatremia (principal); E86.0 Dehydration; I10 Essential (primary) hypertension; M81.0 Age-related osteoporosis without current pathological fracture; M19.90 Unspecified osteoarthritis, unspecified site; Z90.49 Acquired absence of other specified parts of digestive tract; Z98.42 Cataract extraction status, left eye; Z98.41 Cataract extraction status, right eye; Z93.2 Ileostomy status; Z88.1 Allergy status to other antibiotic agents; Z88.2 Allergy status to sulfonamides; Z88.8 Allergy status to other drugs, medicaments and biological substances; Z79.82 Long term (current) use of aspirin; Z79.899 Other long term (current) drug therapy; W18.39XA Other fall on same level, initial encounter; Y93.89 Activity, other specified; Y92.89 Other specified places as the place of occurrence of the external cause; Y99.8 Other external cause status

== ENCOUNTER 2018-11-23 22:48 | Inpatient (IN) | payer MEDICARE, OTHER ==
[~2018-11-23] VITALS: Ht 254 cm; Wt 41.3 kg
--- NOTE | ~2018-11-23 | CON ---
[facility] [address] [place] [address] CONSULTATION Name: KYLERACHEL M Room: [address] M.R.#: [id number] Admission: 11/24/18 Attend Phys: Aleksandra Krishna Discharge: Date of : 30 Report #: [id number] THIS REPORT FOR: //name// CC: El Killian MD DATE OF SERVICE: 11/25/2018 REFERRING PHYSICIAN: Eri Killian M.D. REASON FOR CONSULTATION: Dehydration. IMPRESSION: 1. Status post recurrent falls due to suspected dehydration. 2. Hyponatremia and hypokalemia, possibly related to chronic diarrhea. 3. Status post subtotal colectomy. 4. 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 5. Anorexia with early satiety. 6. Orthostasis, resolved. RECOMMENDATIONS: 1. I agree with the patient being admitted to the hospital for IV fluids, potassium supplementation, etc. 2. We will monitor the patient's oral food and water input at this point in time. 3. We will consult the dietitian to help with the patient and her family with recommendation on how to keep her hydrated with having only an ileostomy to help with her GI fluid losses. 4. I agree with adding Remeron at bedtime to help with her appetite. 5. We will hold off on any endoscopic study of her upper GI tract at this time, but it may be necessary if she does not respond to her current care. I contacted the patient's daughter while I was in the patient's room and talked to Jessica. I discussed all these plans. Everyone is agreeable to the same. HISTORY OF PRESENT ILLNESS: The patient is a very pleasant 88-year-old white female, well known to me, who was admitted to the hospital for the second time this year because of problems with lightheadedness, dizziness and falls. When she came in, she is hyponatremic and hypokalemic and this may be related to fluid losses from her ileostomy. She underwent a subtotal colectomy with permanent ileostomy bag in 2016 because of problem with chronic diarrhea, fecal incontinence and the like. At that time, she had evidence for microscopic and collagenous colitis well as ischemic colitis, which were contributing to the same. She has actually done relatively well, [place] [address] CONSULTATION Name: RACHEL WRIGHT Room: [address]#: [id number] Admission: 11/24/18 Attend Phys: Aleksandra Krishna Discharge: Date of : 30 Report #: [id number] months, when she has had to be admitted to the hospital because of lightheadedness, dizziness and falls. She denies any complaints of any dysphagia or odynophagia. She does have a little bit of indigestion and heartburn, but nothing that had been severe. She has not had any black stools or tarry stools. She has not had any nausea or vomiting, but her appetite has not been all that good. Her family is concerned, as she is having some issues with depression. She currently lives alone, but has caregivers that come in and take care of her for a few hours at a time each day. She is very lucid and has no complaints at this time. ALLERGIES: HER ALLERGIES ARE TO AMOXICILLIN, LEVAQUIN, SULFA AND GLUTEN. MEDICATIONS: Her medications at this time include Caltrate, aspirin, levothyroxine, potassium, clorazepate, lactobacillus, timolol eye drops, B12, levothyroxine, amlodipine and melatonin. PAST MEDICAL HISTORY: Remarkable for some glaucoma, hypertension, celiac disease. She had bilateral cataract extractions and osteoporosis. She had problem with chronic uveitis. She has had history of microscopic and collagenous colitis and has undergone subtotal colectomy with permanent ileostomy. She also had back surgery as well. She has a cholecystectomy. SOCIAL HISTORY: The patient does not smoke or drink. PHYSICAL EXAMINATION: GENERAL: Revealed a pleasant 88-year-old white female, who was awake and alert. CARDIOPULMONARY EXAMINATION: Revealed a regular rate and rhythm. LUNGS: Clear. ABDOMEN: Soft, nontender. No rebound or guarding noted. LABORATORY DATA: Her laboratory tests from today revealed a white count 6.4, hemoglobin 11.1, platelet count 238,000, MCV is 90 and RDW is 13.2. Sodium is 134, potassium is 3.0, chloride 98, bicarbonate 27, BUN 10 and creatinine 0.6. Her total bilirubin is 0.4, alkaline phosphatase is 88, AST is 323 and ALT is 27. Albumin is 3.4. DISCUSSION: At the present time, we will see how she does. If she is not responding to medical therapy, we will proceed with upper endoscopy in a couple of days. I have discussed the plans with the patient as well and she is agreeable to the same. By: [id number] Greene DO /nt
[~2018-11-23 22:48] MED LIST changes: +ASPIRIN325 PO; +BENICAR20 MG PO; +NITROFURANTOIN50 M2 PO; +TIMOLOL GL0.5 %/5 M1 OPHTHALMIC; +TYLENOL EXTRA500 MG PO
[2018-11-23 22:52] VITALS: BP 127/67
[2018-11-23] MEDS ORDERED: MELATONIN1 MG PO (23:05)
[2018-11-24 00:22] LABS: ABSOLUTE EOSINOPHILS 0.2 thou/uL (0.0-0.7); ABSOLUTE LYMPHOCYTES 0.6 thou/uL (0.8-5.3); ABSOLUTE MONOCYTES 0.7 thou/uL (0.0-1.2); ABSOLUTE NEUTROPHILS 4.9 thou/uL (1.6-8.1); BASOPHILS 0.6 %; EOSINOPHILS 2.5 %; HEMATOCRIT 32.6 % (37.0-47.0); HEMOGLOBIN 11.1 gm/dL (12.0-15.0); LYMPHOCYTES 9.5 %; MCH 30.8 pg (26.0-34.0); MCHC 34.2 g/dL (28.0-37.0); MONOCYTES 11.5 %; NUCLEATED RBCS 0 /100WBC; PLATELET COUNT* 238 thou/uL (150-400); POLYS 75.9 %; RBC 3.62 mil/uL (4.20-5.00); RDW-CV 13.2 % (10.5-14.5); WBC 6.4 thou/uL (4.0-11.0)
[2018-11-24 00:40] LABS: ANION GAP 8 mmol/L (7-16); BUN 16 mg/dL (7-18); CALCIUM 8.7 mg/dL (8.5-10.1); CHLORIDE 91 mmol/L (98-107); CO2 24 mmol/L (21-32); CREATININE 0.6 mg/dL (0.6-1.3); GLUCOSE 83 mg/dL (70-99); POTASSIUM 4.8 mmol/L (3.5-5.1); SODIUM 123 mmol/L (136-145)
[2018-11-24 00:50] LABS: ALBUMIN 3.4 g/dL (3.4-5.0); ALKALINE PHOSPHATASE 88 U/L (46-116); SGOT 23 U/L (15-37); SGPT 27 U/L (30-65); TOTAL BILIRUBIN 0.4 mg/dL (<0.1-1.0); TOTAL PROTEIN 6.3 g/dL (6.4-8.2); TROPONIN-I LEVEL <0.06 ng/mL (<0.06)
--- NOTE | 2018-11-24 00:53 | NUR ---
PATIENT NOTIFIED THAT A URINE SPECIMAN WAS REQUESTED BY DR AHUMADA FROM PATIENT. PATIENT STATES SHE CANNOT GO AT THIS TIME. FAMILY REMAINS AT BEDSIDE NAD STATES THEY WILL NOTIFY US IF PATIENT WANTS TO GO TO THE BATHROOM.
[2018-11-24 01:54] VITALS: BP 124/73
[2018-11-24 02:00] VITALS: BP 154/54
[2018-11-24 03:50] LABS: URINE BILIRUBIN NEGATIVE (Negative); URINE BLOOD NEGATIVE (Negative); URINE CLARITY CLEAR; URINE COLOR YELLOW; URINE GLUCOSE-RANDOM NEGATIVE (Negative); URINE KETONES NEGATIVE (Negative); URINE LEUKOCYTES-REFLEX NEGATIVE (Negative); URINE NITRITE-REFLEX NEGATIVE (Negative); URINE PROTEIN NEGATIVE (Negative); URINE SPECIFIC GRAVITY <= 1.005 (1.005-1.030); URINE UROBILINOGEN 0.2 E.U./dl (0.2-1.0)
--- NOTE | 2018-11-24 05:29 | NUR ---
RECEIVED REPORT FROM MICHELLE GROSSMAN. PT TRANSFERRED TO 311. PT A&OX4. VSS. ADMISSION HISTORY & PHYSICAL ASSESSMENT COMPLETED AND CHARTED. FALL FORM SIGNED. ORIENTED TO ROOM & CALL LIGHT. PT ON RA. PT WITH LACERATION ON THE LEFT ELBOW & ABRASION ON THE LEFT LEG. PHOTOGRAPH TAKEN. PT UP WITH 1 ASSIST TO BSC. URINE SPECIMEN SENT TO LAB. CALL LIGHT WITHIN REACH.
[2018-11-24 08:00] VITALS: BP 142/62
--- NOTE | 2018-11-24 11:30 | NUR ---
INITIAL ASSESSMENT: Pt evaluated for d/c planning needs. Reviewed chart and spoke with nurse and pt. Pt is alert and oriented. Pt states she lives alone in house and was independent with ADL's prior to admission to the hospital. Pt has walker, w/c, shower bench, [employer] and bedside commode. Pt has homemaker services 9-noon and 3-6 daily. Pt has 2 daughters who live locally and are supportive and involved. Pt has had [facility] in the past. Pt was hospitalized at [facility] in July and went to [facility]. Pt said she plans on returning home on d/c from hospital. Will remain available to assist as needed.
[2018-11-24 15:30] VITALS: BP 148/59
--- NOTE | 2018-11-24 16:24 | NUR ---
PATIENT ALERT AND ORIENTED X 4. VITAL SIGNS STABLE ON ROOM AIR. AFEBRILE. UP WITH STAND BY ASSIST TO THE BEDSIDE COMODE. IV PATENT WITH FLUIDS INFUSING. DENIES PAIN AND NAUSEA AT THIS TIME. FALL PRECAUTIONS IN PLACE AND BED ALARM ON. HOURLY ROUNDS MAINTAINED THROUGHOUT THE SHIFT. CALL LIGHT WITHIN REACH. NURSING WILL CONTINUE TO MONITOR.
[2018-11-24 20:30] VITALS: BP 153/70
--- NOTE | 2018-11-25 06:00 | NUR ---
Alert and oriented x 4. She is up with moderate assist to bedside commode. She did empty her colostomy bag in bedside commode x 1 last evening. She denies pain or nausea. She is unsteady and needs assist to transfer to bedside commode. Her home med for anxiety to help her sleep was substituted for alprazolam because we didn't carry her med. She did sleep well.
[2018-11-25 06:13] LABS: CALCIUM 8.2 mg/dL (8.5-10.1); CREATININE 0.6 mg/dL (0.6-1.3)
[2018-11-25 09:35] VITALS: BP 159/59
[2018-11-25 17:00] VITALS: BP 141/54
--- NOTE | 2018-11-25 18:30 | NUR ---
ALERT AND ORIENTED BUT FORGETFUL AT TIMES. UP WITH PT AMBULATING IN HALLWAY WITH STAND BY ASSIST. PATIENT TAKES CARE OF OWN COLOSTOMY IN BATHROOM. USES PULLUPS. HARD OF HEARING. PROGRESSING TOWARD DISCHARGE GOAL. CALL LIGHT WITHIN REACH.
[2018-11-25 20:00] VITALS: BP 186/66
--- NOTE | 2018-11-26 04:42 | NUR ---
Alert and oriented x 4 but hard of hearing and alittle forgetful this shift. She had been getting up independently to the bedside commode during dayshift but she had remeron added to her nightime meds and this shift she came out of her room with her walker but didn't know where she was. She did reorientate quickly but I did palce the bedalarm back on. She has been doing her own colostomy care but does need someone standing by for assist and help to stay hygienic. She has slept well.
[2018-11-26 04:56] LABS: ABSOLUTE EOSINOPHILS 0.2 thou/uL (0.0-0.7); ABSOLUTE LYMPHOCYTES 0.9 thou/uL (0.8-5.3); ABSOLUTE MONOCYTES 0.6 thou/uL (0.0-1.2); ABSOLUTE NEUTROPHILS 2.7 thou/uL (1.6-8.1); BASOPHILS 0.7 %; EOSINOPHILS 4.1 %; HEMATOCRIT 33.5 % (37.0-47.0); HEMOGLOBIN 11.5 gm/dL (12.0-15.0); MCH 31.1 pg (26.0-34.0); MCHC 34.4 g/dL (28.0-37.0); MCV 90.5 fL (80.0-100.0); MONOCYTES 13.2 %; MPV 6.5 fl. (7.2-11.1); NUCLEATED RBCS 0 /100WBC; PLATELET COUNT* 247 thou/uL (150-400); WBC 4.4 thou/uL (4.0-11.0)
[2018-11-26 05:03] LABS: ALBUMIN 3.1 g/dL (3.4-5.0); CALCIUM 8.6 mg/dL (8.5-10.1); CREATININE 0.6 mg/dL (0.6-1.3); POTASSIUM 3.8 mmol/L (3.5-5.1); TOTAL BILIRUBIN 0.4 mg/dL (<0.1-1.0); TOTAL PROTEIN 6.1 g/dL (6.4-8.2)
[2018-11-26 06:10] LABS: ESR (SEDRATE) 22 mm/hr (0-30)
[2018-11-26 07:35] VITALS: BP 138/64
[2018-11-26] MEDS ORDERED: REMERON15 MG PO (11:39)
[2018-11-26 11:56] VITALS: BP 138/64
--- NOTE | 2018-11-26 12:38 | NUR ---
Nutrition: Ht is recorded as 8'4" but pt is more accurately 5'4." Corrected BMI is 15.6. She is underweight, but this is her usual wt; no significant recent wt changes. Ileostomy education given, handouts left for family members. Mild risk.
[2018-11-26 13:56] VITALS: BP 138/64
--- NOTE | 2018-11-26 13:56 | NUR ---
PT GIVEN DISCHARGE INFORMATION, PRESCRIPTIONS, AND CARE NOTES. IV REMOVED. PT DID NOT WANT TO WAIT TO GO HOME FOR HOME HEALTH TO BE COMPLETED. MARRY NOTIFIED AND WILL SET UP HOME HEALTH. FALL RISK PRECAUTIONS IN PLACE. HOURLY ROUNDING COMPLETED. PT LEFT VIA WHEELCHAIR WITH NURSING STAFF TO HOME.
[2018-11-26 14:30] VITALS: BP 138/64
--- NOTE | 2018-11-26 14:32 | NUR ---
Pt to dc home today with HH services to follow. MADELEINE faxed referral and orders to pt/family preference of [facility] as they had [facility] in the past. [facility] [phone] fax [phone]
== END 2018-11-26 13:59 | disposition home health service (06) | DRG 392 ==
LOC: M.ERS 22:48 → M.TBA-ER 11-24 01:02 → M.3W 11-24 01:02
PROVIDERS: Emergency Medicine; Internal Medicine; Internal Medicine Gastroenterology; ADMIT Internal Medicine
PROC: 0HQEXZZ Repair Left Lower Arm Skin, External Approach (ICD-10-PCS; principal; 2018-11-24)
DX: K52.9 Noninfective gastroenteritis and colitis, unspecified (principal); E87.1 Hypo-osmolality and hyponatremia; E44.0 Moderate protein-calorie malnutrition; W18.39XA Other fall on same level, initial encounter; S51.012A Laceration without foreign body of left elbow, initial encounter; I10 Essential (primary) hypertension; E86.0 Dehydration; E87.6 Hypokalemia; M81.0 Age-related osteoporosis without current pathological fracture; Y92.89 Other specified places as the place of occurrence of the external cause; Y99.8 Other external cause status; Z90.49 Acquired absence of other specified parts of digestive tract; Z98.41 Cataract extraction status, right eye; Y93.89 Activity, other specified; Z85.828 Personal history of other malignant neoplasm of skin; Z98.42 Cataract extraction status, left eye; Z79.82 Long term (current) use of aspirin; Z88.2 Allergy status to sulfonamides; Z88.1 Allergy status to other antibiotic agents; Z88.8 Allergy status to other drugs, medicaments and biological substances

== ENCOUNTER 2019-03-19 13:45 | Inpatient (IN) | payer MEDICARE, OTHER ==
[~2019-03-19] VITALS: Ht 162.6 cm; Wt 42.2 kg
[~2019-03-19 13:45] MED LIST changes: +MELATONIN1 MG PO; +REMERON15 MG PO
[2019-03-19 13:51] VITALS: BP 152/63
[2019-03-19] MEDS ORDERED: BENICAR20 MG PO (14:01)
[2019-03-19] MEDS ORDERED: COZAAR 25 MG TA25 M1 PO (14:02)
[2019-03-19 14:27] LABS: ABSOLUTE LYMPHOCYTES 0.5 thou/uL (0.8-5.3); ABSOLUTE MONOCYTES 0.7 thou/uL (0.0-1.2); ABSOLUTE NEUTROPHILS 4.5 thou/uL (1.6-8.1); BASOPHILS 0.5 %; EOSINOPHILS 0.9 %; HEMATOCRIT 31.7 % (37.0-47.0); HEMOGLOBIN 10.8 gm/dL (12.0-15.0); MCH 30.6 pg (26.0-34.0); MONOCYTES 12.4 %; MPV 5.9 fl. (7.2-11.1); NUCLEATED RBCS 0 /100WBC; PLATELET COUNT* 228 thou/uL (150-400); POLYS 77.2 %; RBC 3.52 mil/uL (4.20-5.00); RDW-CV 12.2 % (10.5-14.5); WBC 5.8 thou/uL (4.0-11.0)
[2019-03-19 14:36] LABS: ANION GAP 9 mmol/L (7-16); BUN 16 mg/dL (7-18); CALCIUM 8.5 mg/dL (8.5-10.1); CHLORIDE 89 mmol/L (98-107); CO2 25 mmol/L (21-32); CREATININE 0.6 mg/dL (0.6-1.3); GLUCOSE 103 mg/dL (70-99); POTASSIUM 4.4 mmol/L (3.5-5.1); SODIUM 123 mmol/L (136-145)
[2019-03-19 14:47] LABS: ALBUMIN 3.3 g/dL (3.4-5.0); ALKALINE PHOSPHATASE 82 U/L (46-116); LIPASE 380 U/L (73-393); NT-PRO BRAIN NAT PEPTIDE 245 pg/mL (<300); SGOT 20 U/L (15-37); SGPT 24 U/L (30-65); TOTAL BILIRUBIN 0.2 mg/dL (<0.1-1.0); TOTAL PROTEIN 6.4 g/dL (6.4-8.2); TROPONIN-I LEVEL <0.06 ng/mL (<0.06)
--- NOTE | 2019-03-19 15:08 | EKG ---
[place] [address] ELECTROCARDIOGRAM REPORT Name: KYLERACHEL Aleksandra Room: [facility]#: [id number] Admission: 03/19/19 Attend Phys: Discharge: Date of : 30 Report #: [id number] THIS REPORT FOR: //name// [facility] ED Test Date: 2019-03-19 Test Time: 13:57:42 Pat Name: RACHEL WRIGHT Department: Room: Gender: F Lead Material Handler: SRIDHAR : 1930 Requested By: Dragan Peres Order Number: [id number] MD: Wale Morales Measurements Intervals [place] Rate: 73 P: 75 TX: 237 QRS: 23 QRSD: 85 T: 58 QT: 357 QTc: 394 Interpretive Statements Sinus rhythm Prolonged TX interval Baseline wander in lead(s) V3 Compared to ECG 08/05/2018 22:38:05 First degree AV block now present Sinus tachycardia no longer present Atrial premature complex(es) no longer present Inferior Q waves no longer present Q waves no longer present Electronically Signed On 03-19-2019 15:08:17 CDT by Wale Morales [email or web address] <ELECTRONICALLY SIGNED> By: Wale Morales MD, FACC 03/19/19 1508 [id number] Wale Morales MD, [facility] /EPI
[2019-03-19 15:32] LABS: URINE BILIRUBIN NEGATIVE (Negative); URINE BLOOD NEGATIVE (Negative); URINE CLARITY CLEAR; URINE COLOR YELLOW; URINE GLUCOSE-RANDOM NEGATIVE (Negative); URINE KETONES NEGATIVE (Negative); URINE LEUKOCYTES-REFLEX NEGATIVE (Negative); URINE NITRITE-REFLEX NEGATIVE (Negative); URINE PROTEIN NEGATIVE (Negative); URINE SPECIFIC GRAVITY <= 1.005 (1.005-1.030); URINE UROBILINOGEN 0.2 E.U./dl (0.2-1.0)
[2019-03-19 19:31] VITALS: BP 161/60
[2019-03-19 20:37] LABS: ANION GAP 8 mmol/L (7-16); BUN 15 mg/dL (7-18); CALCIUM 8.8 mg/dL (8.5-10.1); CHLORIDE 95 mmol/L (98-107); CO2 28 mmol/L (21-32); CREATININE 0.6 mg/dL (0.6-1.3); GLUCOSE 88 mg/dL (70-99); SODIUM 131 mmol/L (136-145)
[2019-03-19 20:47] LABS: TROPONIN-I LEVEL <0.06 ng/mL (<0.06)
[2019-03-20 04:23] LABS: CALCIUM 8.9 mg/dL (8.5-10.1); CREATININE 0.6 mg/dL (0.6-1.3); MAGNESIUM 1.6 mg/dL (1.8-2.4); POTASSIUM 3.7 mmol/L (3.5-5.1)
--- NOTE | 2019-03-20 07:01 | NUR ---
PT ALERT AND ORIENTED. FORGETFUL. PLEASANT. TRANSFERED FROM ER TO RM 116 @ 1940. ADMISSION HX AND ASSESSMENT COMPLETED. DTR MARYELLEN CAMERON CONTRIBUTED TO AT BEDSIDE DURING ADMISSION AND CONTRIBUTED TO HX. GLUTEN FREE DIET D/T CELIAC DISEASE. WOUBD TO LT BUTTOCK. PICTURE TAKEN. FALL PRECAUTION IN PLACE. MEDS GIVEN PER EMAR. CALL LIGHT WITHIN REACH. HOURLY ROUNDINGS MADE. WILL CONTINUE TO MONITOR.
[2019-03-20 08:52] VITALS: BP 156/65
[2019-03-20 09:26] VITALS: BP 156/65
--- NOTE | 2019-03-20 12:50 | NUR ---
Nutrition: RD familiar with pt. She usually weighs in the 90s, today 93#. Regular diet. She stated she is eating just fine. Admitted with weakness, hyponatremia. In good spirits. Pressure ulcer on buttock. She agreed to Ensure BID, she likes it. Eyes were somewhat sunken; couldn't physically assess rest of body d/t blankets up to pt's neck. RD will order Ensure for added nutrition. Mild risk.
[2019-03-20 13:03] VITALS: BP 161/69
--- NOTE | 2019-03-20 15:00 | NUR ---
SPOKE WITH PT. SHE WAS ALERT AND ORIENTED. STATED SHE LIVES ALONE. SHE USES A WALKER. HAS 2 DAUGHTERS THAT ARE VERY SUPPORTIVE. 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 DAUGHTER,NANCY, ARRIVED AND SAID ABOVE WAS CORRECT. THE CAREGIVERS ARE FROM [facility]. PT.HAS NUTRITION EDUCATOR CARE INS. AND IT COVERS MOST OF THE COST. ONE GENERATOR SWITCHBOARD OPERATOR COMES FROM 9-12 AND THE OTHER ONE COMES FROM 3-6PM. THEY MAINLY DO HER MEAL PREPARATION. WALK WITH HER TO THE RESTROOM, HELP HER BATHE,GO GROCERY SHOPPING, CLEAN HER HOUSE. PT.CARES FOR HER ILEOSTOMY BY HERSELF BUT CAREGIVERS CAN HLEP HER IF NEEDED. DAUGHTER WOULD LIKE TO SEE HOW SHE DOES IN THERAPY TO SEE IF SHE MIGHT NEED A SKILLED STAY OR NOT. THERAPY TO START TOMORROW.
[2019-03-20 16:15] VITALS: BP 114/47
--- NOTE | 2019-03-20 16:20 | NUR ---
WOUND CARE NOTE: CONSULT RECEIVED FOR LEFT BUTTOCK WOUND. PATIENT PRESENTS WITH A HEALING PRESSURE ULCER TO HER SACRUM, PRESENT MORE ON THE LEFT SIDE THAN THE RIGHT. PINK, MOIST WOUND BED. HESHAM-WOUND WITH NEW EPITHELIUM. DRIED, SEROUS DRAINAGE NOTED TO THE PROXIMAL WOUND EDGE. BELIEVE TO BE A STAGE 3 IN THE HEALING PROCESS. CLEANSED WITH WOUND CLEANSER, PATTED DRY. APPLIED OPTIFOAM AG AND SECURED WITH TEGADERM. EDUCATED PATIENT ON KEEPING OFF WOUND, COMMUNICATED UNDERSTANDING. EDUCATED PATIENT ON DRESSING SELECTION, COMMUNICATED UNDERSTANDING. RECOMMEND TURN Q2 HOURS-KEEP OFF WOUND ENCOURAGE GOOD NUTRITION/HYDRATION FOR WOUND HEALING Q3 DAY DRESSING CHANGES LIMIT LAYERS OF LINEN UNDER PATIENT LIMIT HOB <30 DEGREES IF PATIENT CAN TOLERATE WAFFLE CUSHION WHEN IN CHAIR
--- NOTE | 2019-03-20 18:32 | NUR ---
PATIENT AWAKE IN BED. NO SIGNS OF DISTRESS OBSERVED. PATIENT AMBULATING WITH ASSISTANCE TO COMMODE WITH GAIT BELT THROUGHOUT SHIFT. ALL SAFETY MEASURES MAINTAINED. EDUCATION PROVIDED ON WOUND CARE TO PATIENT AND DAUGHTER.
[2019-03-20 20:15] VITALS: BP 135/52
[2019-03-21 03:51] LABS: CALCIUM 8.3 mg/dL (8.5-10.1); CREATININE 0.7 mg/dL (0.6-1.3); MAGNESIUM 1.4 mg/dL (1.8-2.4); POTASSIUM 3.6 mmol/L (3.5-5.1)
--- NOTE | 2019-03-21 04:52 | NUR ---
ASSUMED CARE AT 1910H, ON RA AND TOLERATED. VATALLY STABLE THE WHOLE NIGHT WITH 2 EPISODES OF CONFUSSION.KEPT ORIENTED. ILOESTOMY BAG CHANGED AND CLEANING OF STOMA DONE.CONTINUE MONITORING AND TOWARDS GOALS.POSSIBLE DISCHARGE TODAY.
[2019-03-21 07:50] VITALS: BP 130/57
[2019-03-21 15:00] VITALS: BP 114/47
--- NOTE | 2019-03-21 16:38 | NUR ---
PATIENT REFUSED TO GET UP TO CHAIR FOR MEALS. PT HERE THIS EVENING TO WORK WITH PATIENT. NO IV, ACCESS LOST IN PREVIOUS SHIFT. MG BEING REPLACED ORALLY, MG LEVEL 1.4 THIS AM AND AFTER REPLACEMENT 1.5, WILL CONTINUE TO REPLACE PER PROTOCOL. DRESSING TO COCCYX REMAINS INTACT. PATIENT VOIDING PER BSC, UP WITH ASSISTANCE AND USE OF WALKER. 2L FLUID RESTRICTION IN PLACE, CHARTED. DISCHARGE TO HOME VS REHAB.
[2019-03-21 20:41] VITALS: BP 110/47
[2019-03-22 03:58] LABS: CALCIUM 8.5 mg/dL (8.5-10.1); CREATININE 0.7 mg/dL (0.6-1.3); POTASSIUM 4.9 mmol/L (3.5-5.1)
--- NOTE | 2019-03-22 04:50 | NUR ---
ASSESSMENT: PT REMAIN ALERT AND ORIENT TIMES THREE, SOMETIMES CONFUSED/FORGETFUL TO PLACE AND SITUATION. PT SLEPT MOST OF THE NIGHT. DENIES PAIN SOB, N/V. SBA WITH WALKER TO BSC. ILEOSTOMY NOTED WITH SEMI-LIQUID STOOL. PT CARES FOR OSTOMY HERSELF. LEFT BUTTOCK WOUNDINTACT. SLOW PROGRESS TOWARDS DC GOALS. WILL CONTINUE TO MONITOR.
[2019-03-22 08:00] VITALS: BP 123/48
--- NOTE | 2019-03-22 11:54 | NUR ---
PT.IS RECOMMENED FOR SNF PER THERAPY. CM CALLED DAUGHTER,NANCY,ON CELL. SHE WOULD LIKE A REFERRAL SENT TO [facility]. CM FAXED A REFERRAL TO [facility].
--- NOTE | 2019-03-22 14:45 | NUR ---
[facility] CALLED AND SAID THEY COULD ACCEPT PT.TO A SNF BED TODAY. [facility] LEVY NOTIFIED DR.DE GALO. SHE SAID SHE WOULD DISCHARGE PT.TOMORROW. NOTIFIED TIKI. SHE SAID THEY COULD ACCEPT PT.TOMORROW TO A SNF BED. GOMEZ NOTIFIED DAUGHTER,NANCY.
[2019-03-22 16:00] VITALS: BP 115/52
--- NOTE | 2019-03-22 17:44 | NUR ---
PATIENT UP TO CHAIR ALL MORNING INTO AFTERNOON, REPOSITIONED IN CHAIR AND WAFFLE CUSHION IN PLACE. DRESSING TO SACRUM REMAINS IN PLACE. NO COMPLAINTS OF PAIN. MG REPLACEMENT THIS SHIFT. PATIENT AMBULATED IN HALLWAY WITH NURSE, UTILIZING WALKER AND GAIT BELT. PATIENT TO DISCHARGE TO [facility] TOMORROW.
[2019-03-22 22:45] VITALS: BP 110/46
[2019-03-23 05:03] LABS: CALCIUM 8.6 mg/dL (8.5-10.1); CREATININE 0.7 mg/dL (0.6-1.3); MAGNESIUM 1.6 mg/dL (1.8-2.4); PHOSPHORUS* 3.4 mg/dL (2.5-4.9); POTASSIUM 5.3 mmol/L (3.5-5.1)
--- NOTE | 2019-03-23 06:56 | NUR ---
PT ALERT AND ORIENTED, FORGETFUL AT TIMES. VITALS STABLE RA. PT DENIED PAIN. MEDS GIVEN ORDERED. UP TO THE COMMODE WITH STANDBY ASSIST, EMPTIED COLONOSCOPY BAG TWICE THIS SHIFT. DRESSING ON SACRUM WITH SMALL AMOUNT OF DRAINAGE CHANGED THIS MORNING. HOURLY ROUNDING, Q2 TURN COMPLETED. ELECTROLYTE REPLACEMENT IN PROGRESS. WILL CONTINUE TO MONITOR.
[2019-03-23 07:55] VITALS: BP 124/48
[2019-03-23] MEDS ORDERED: ADULT ASPIRIN R81 MG PO (08:13)
[2019-03-23] MEDS ORDERED: MAGOX 400400 MG PO (08:13)
--- NOTE | 2019-03-23 10:30 | NUR ---
Pt discharging to [facility] skilled today. Faxed dc orders. Chart copied. Nurse report numberis [phone]. Left VM for Pt's dtr, Jessica, regarding disposition. Facility to bead picker at 2pm
[2019-03-23 13:55] VITALS: BP 124/48
--- NOTE | 2019-03-23 16:35 | NUR ---
PATIENT DISCHARGED TO [facility] REPORT CALLED. COPY OF CHART AND DISCHARGE ORDERS GIVEN TO TRANSPORTER. BELONGINGS PACKED AND TAKEN BY DAUGHTER. WOUND CARE PROVIDED. IV REMOVED. PATIENT DENIES ANY FURTHER NEEDS. PATIENT TAKEN BY WHEELCHAIR VAN AT THIS TIME.
== END 2019-03-23 16:35 | DRG 640 ==
LOC: M.ERS 13:45 → M.ORTHSURG 15:17 → M.TBA-ER 15:17 → M.ORTHSURG 19:40
PROVIDERS: Emergency Medicine; Family Medicine; Internal Medicine; ADMIT Internal Medicine
DX: E87.1 Hypo-osmolality and hyponatremia (principal); G92 Toxic encephalopathy; K55.9 Vascular disorder of intestine, unspecified; I10 Essential (primary) hypertension; M81.0 Age-related osteoporosis without current pathological fracture; F32.9 Major depressive disorder, single episode, unspecified; G47.00 Insomnia, unspecified; E03.9 Hypothyroidism, unspecified; R54 Age-related physical debility; K90.0 Celiac disease; Z66 Do not resuscitate; L89.322 Pressure ulcer of left buttock, stage 2; Z90.49 Acquired absence of other specified parts of digestive tract; Z98.42 Cataract extraction status, left eye; Z98.41 Cataract extraction status, right eye; Z93.2 Ileostomy status; Z88.1 Allergy status to other antibiotic agents; Z88.2 Allergy status to sulfonamides; Z88.8 Allergy status to other drugs, medicaments and biological substances

== ENCOUNTER 2019-04-20 00:01 | Emergency (ER) | payer MEDICARE, OTHER ==
[~2019-04-20] VITALS: Ht 162.6 cm; Wt 44.5 kg
[~2019-04-20 00:01] MED LIST changes: +ADULT ASPIRIN R81 MG PO; +COZAAR 25 MG TA25 M1 PO; +MAGOX 400400 MG PO
[2019-04-20] MEDS ORDERED: NORVASC 2.5 MG2.5 M1 PO (00:11)
[2019-04-20] MEDS ORDERED: MILK OF MA400 MG/5 M PO (00:12)
[2019-04-20] MEDS ORDERED: SUPER THERAVIT1 EACH PO (00:12)
[2019-04-20] MEDS ORDERED: KEFLEX500 M1 PO ×2 (01:13→01:24)
[2019-04-20 02:04] VITALS: BP 143/45
== END 2019-04-20 01:45 | disposition home or self-care (01) ==
LOC: M.ERS 00:01
DX: S51.012A Laceration without foreign body of left elbow, initial encounter (principal); S00.03XA Contusion of scalp, initial encounter; L03.115 Cellulitis of right lower limb; I10 Essential (primary) hypertension; G47.00 Insomnia, unspecified; M81.0 Age-related osteoporosis without current pathological fracture; Z90.49 Acquired absence of other specified parts of digestive tract; Z85.828 Personal history of other malignant neoplasm of skin; Z98.890 Other specified postprocedural states; Z88.1 Allergy status to other antibiotic agents; Z88.2 Allergy status to sulfonamides; W18.39XA Other fall on same level, initial encounter; Y92.89 Other specified places as the place of occurrence of the external cause; Y93.89 Activity, other specified; Y99.8 Other external cause status